=== PATIENT | female | born 1975 | race Caucasian/White ===

== ENCOUNTER 2017-07-15 16:46 | Emergency (ER) | payer SELFPAY ==
[2017-07-15 16:53] VITALS: BP 119/62; PULSE 78; TEMP 98.8; BMI 26.8
--- NOTE | 2017-07-15 17:46 | PDOC ---
History of Present Illness - General Chief Complaint: Abscess Boil Stated Complaint: PAIN, ACUTE Time Seen by Provider: 07/15/17 17:31 History Source: Patient Exam Limitations: No Limitations - History of Present Illness Initial Comments: 07/15/17 17:59 Chief complaint: Abscess draining right buttocks History of present illness: Patient is a 41-year-old female with significant medical history here today with tenderness and redness of right medial buttocks with drainage that started within the last day days. Patient reports having subjective fever yesterday. Patient is afebrile currently. Patient denies having any other areas like this previously or any exposure to someone else with any skin abscesses. Timing/Duration: getting worse Severity: moderate Associated Symptoms: reports: denies symptoms Past History - Past Medical History Allergies/Adverse Reactions: Allergies Allergy/AdvReac Type Severity Reaction Status Date / Time No Known Allergies Allergy Verified 07/15/17 16:49 Home Medications: Ambulatory Orders Ibuprofen 600 mg PO Q6H PRN #18 tablet 07/15/17 Sulfamethoxazole/Trimethoprim [Bactrim Ds -] 1 tab PO BID #13 tablet 07/15/17 Other medical history: DENIES. - Psycho/Social/Smoking Cessation Hx Suicidal Ideation: No Smoking History: Never smoked Review of Systems - Review of Systems Able to Perform ROS?: Yes Constitutional: No: Symptoms Reported HEENTM: No: Symptoms Reported Respiratory: No: Symptoms reported Cardiac (ROS): No: Symptoms Reported ABD/GI: No: Symptoms Reported : No: Symptoms Reported Integumentary: Yes: Erythema (rt. medial buttock with tiny open area with serosanquinous drainage tender to touch ), Other Neurological: No: Symptoms reported *Physical Exam - Vital Signs Last Vital Signs Temp Pulse Resp BP Pulse Ox 98.8 F 78 19 119/62 99 07/15/17 16:50 07/15/17 16:50 07/15/17 16:50 07/15/17 16:50 07/15/17 16:50 - Physical Exam General Appearance: Yes: Appropriately Dressed Respiratory/Chest: positive: Lungs Clear, Normal Breath Sounds. negative: Chest Tender, Respiratory Distress Cardiovascular: positive: Regular Rhythm, Regular Rate, S1, S2 Integumentary: positive: Erythema (rt. medial buttock erythema diameter 16 cm x 8 cm fluculant with tiny opening in center, tender ) Procedures - Consent Consent obtained: From Patient - Incision and Drainage I&D Site: Right: Buttock (medial buttock ) Betadine cleansed: Yes Anesthesia: 1% Lidocaine Volume(ml): 6 Blade Size: 11 Attempts: 1 Iodinated Packin/4 in Plain Packing: No Complications: none Dressing: Yes (2 x 2 with tegaderm ) Progress: 07/15/17 18:30 large amount of serosanguineous uuo-gdeo-wjpyjswd discharge obtained *DC/Admit/Observation/Transfer Diagnosis at time of Disposition: Abscess of buttock, right - Discharge Dispostion Disposition: HOME Condition at time of disposition: Stable - Patient Instructions Additional Instructions: Do not wet area where dressing is Return here in 2 days for packing removal or sooner if any fever or increased redness around area Patient voiced understanding of discharge instructions and all questions were answered - Post Discharge Activity Work/School Note: Back to Work
[2017-07-15] MEDS ORDERED: LIDOCAINE HCL 1%, 10 MG/ML (20ML VIAL) ONE (18:07)
[2017-07-15] MEDS ORDERED: SULFAMETHOXAZOLE/TRIMETHOPRIM 800MG/160MG D.S. TABLET PO ONE (18:30)
[2017-07-15] MEDS ORDERED: IBUPROFEN 600 MG TABLET (FP) PO ONE ×2 (18:31→18:34)
[2017-07-15] MEDS ORDERED: SULFAMETHOXAZOLE/TRIMETHOPRIM 800MG/160MG D.S. TABLET ONE (18:34)
== END 2017-07-15 18:41 | disposition home or self-care (01) ==
LOC: JERFT 16:46
PROC: 0J990ZZ Drainage of Buttock Subcutaneous Tissue and Fascia, Open Approach (ICD-10-PCS; principal; 2017-07-15)
DX: L02.31 Cutaneous abscess of buttock (principal)
CPT/HCPCS: 87070; 87186; 87205; 99282-25

== ENCOUNTER 2017-07-16 12:24 | Emergency (ER) | payer SELFPAY ==
[2017-07-16 12:31] VITALS: BP 105/62; PULSE 79; TEMP 98.4; BMI 26.8
[2017-07-16] MEDS ORDERED: SULFAMETHOXAZOLE/TRIMETHOPRIM 800MG/160MG D.S. TABLET PO ONE (13:25)
--- NOTE | 2017-07-16 13:37 | PDOC ---
Suture Removal/Wound Check HPI - History of Present Illness Chief Complaint: Revisit,Wound Recheck Stated Complaint: REVISIT, PAIN Time Seen by Provider: 07/16/17 12:57 History Source: Yes: Patient Exam Limitations: Yes: No Limitations [facility]ated [facility] Date of Last ED visit: 07/15/17 - Previous ED Treatment Type of procedure performed on last visit: Yes: I&D of Abscess Antibiotics Prescribed: Yes (bactrim) - Onset of Previous Treatment Date of Occurence: 07/15/17 Past History - Past Medical History Allergies/Adverse Reactions: Allergies No Known Allergies Allergy (Verified 07/16/17 12:30) Home Medications: Ambulatory Orders Ibuprofen 600 mg PO Q6H PRN #18 tablet 07/15/17 Sulfamethoxazole/Trimethoprim [Bactrim DS -] 1 tab PO BID #13 tablet 07/16/17 General: Yes: no pertinent history - Immunization History Immunizations Up to Date: Yes - Social History Smoking Status: Never smoked Suture Removal/Wound Check PE - Physical Exam Laceration/Wound Check Symptoms: reports: Pain Comments: 07/16/17 13:46 07/16/17 13:46 Open area to right medial buttocks with surrounding erythema with packing of iodoform in place erythema has decreased since yesterday there is a moderate amount of serosanguineous discharge on packing and dressing is tender to touch Maximum Severity Level: Moderate Comments: 07/16/17 13:45 rt. buttock medial open area with packing iodoform draining moderate amount of serosanquinous drainage. *Review of Systems - Review of Systems Able to Perform ROS?: Yes Constitutional: Yes: Symptoms Reported Integumentary: Yes: Other (rt. medial buttock I & D'd yesterday here today due to dressing falling off and soaked with discharge ) Neurological: No: Symptoms reported Medical Decision Making - Medical Decision Making 07/16/17 14:03 Patient was here yesterday for I & D of abscess to right medial buttocks patient returns today due to dressing falling off and being soaked with serosanguineous discharge. Patient is afebrile. Redness surrounding area has lessened area is continues to be tender to touch. Pt. did not start on BActrim DS does not have insurance. Will reorder for [facility] in the [place] is $ 4, pt. agrees with plan 07/16/17 14:04 wound cleansed and dressing changed PLAN: bactrim DS 1 tab now than bid for 7 days follow up with PCP in 2 days apply warm soaks to area every 2 hrs for 15 minutes for 2 days 07/16/17 14:05 *DC/Admit/Observation/Transfer Diagnosis at time of Disposition: Cheek wound Qualifiers: Encounter type: initial encounter Laterality: right Qualified Code(s): S01.401A - Unspecified open wound of right cheek and temporomandibular area, initial encounter - Discharge Dispostion Disposition: HOME Condition at time of disposition: Stable - Prescriptions Prescriptions: Sulfamethoxazole/Trimethoprim [Bactrim DS -] 1 tab PO BID #13 tablet - Referrals Referrals: STAFF,NOT ON [Primary Care Provider] - - Patient Instructions Additional Instructions: Apply warm soaks to wound area for 15 minutes every 2 hours for the next 2 days Follow-up with your primary care provider in 2 days for further evaluation Take ibuprofen as needed as directed by board certified arts therapist for pain Return to emergency room if any fever or increased redness around wound Patient voiced understanding of discharge instructions and all questions were answered Aplique remojos calientes al kelly de la herida diego 15 minutos cada 2 horas diego los prximos 2 vergara Seguimiento con venegas proveedor de atencin primaria en 2 vergara para emily evaluacin posterior Laurel ibuprofeno segn sea necesario segn las instrucciones del fabricante para el dolor Regreso a la dorene de emergencias si hay fiebre o aumento de enrojecimiento alrededor de la herida
[2017-07-16] MEDS ORDERED: SULFAMETHOXAZOLE/TRIMETHOPRIM 800MG/160MG D.S. TABLET ONE (13:45)
== END 2017-07-16 14:18 | disposition home or self-care (01) ==
LOC: JERFT 12:24
DX: Z04.1 Encounter for examination and observation following transport accident (principal); L02.31 Cutaneous abscess of buttock
CPT/HCPCS: 99281-25

== ENCOUNTER 2022-11-17 13:15 | Emergency (ER) | payer OTHER ==
[2022-11-17 13:37] VITALS: BMI 23.6
[2022-11-17] MEDS ORDERED: MECLIZINE HCL 25 MG TABLET (FP) PO ONE (14:43)
[2022-11-17] MEDS ORDERED: SODIUM CHLORIDE 0.9% 500 ML INFUS.BAG IV ONE (14:43)
[2022-11-17] MEDS ORDERED: MECLIZINE HCL 25 MG TABLET (FP) ONE (16:56)
[2022-11-17 17:50] VITALS: BP 112/63; PULSE 69; RESP 17; TEMP 98.2
[2022-11-17 17:51] LABS: BASO % 0.5 % (0-2.0); EOS % 0.9 % (0-4.5); HEMATOCRIT 39.4 % (32.4-45.2); LYMPH % 21.7 % (8-40); MCH 30.1 pg (25.7-33.7); MCHC 32.9 g/dl (32.0-36.0); MEAN CELL VOLUME 91.5 fl (80-96); MONO % 5.2 % (3.8-10.2); NEUT % 71.7 % (42.8-82.8); PLATELET COUNT 283 10^3/uL (134-434); RBC 4.31 M/mm3 (3.60-5.2); RDW 13.4 % (11.6-15.6); WHITE BLOOD COUNT 7.5 K/mm3 (4.0-10.0)
[2022-11-17 18:45] LABS: CALCIUM 9.2 mg/dL (8.5-10.1)
[2022-11-17 18:46] LABS: ALBUMIN 3.8 g/dl (3.4-5.0); BLOOD UREA NITROGEN 13.8 mg/dL (7-18)
[2022-11-17 18:49] LABS: CREATININE 0.7 mg/dL (0.55-1.3)
[2022-11-17 18:50] LABS: BILIRUBIN,TOTAL 0.4 mg/dL (0.2-1); TOT PROT 7.6 g/dl (6.4-8.2)
== END 2022-11-17 20:38 | disposition home or self-care (01) ==
LOC: JER 13:15
DX: R42 Dizziness and giddiness (principal)
CPT/HCPCS: 0241U-QW; 36415; 71046-TC-FY; 80053; 84484; 85025; 93005; 93010; 99285-25

== ENCOUNTER 2023-04-25 09:26 | Day surgery (SDC) | payer OTHER ==
[2023-04-24 09:35] VITALS: BMI 26.4
[2023-04-25 10:30] VITALS: RESP 20
[2023-04-25 11:21] VITALS: TEMP 97.1
[2023-04-25 11:44] VITALS: BP 96/52; PULSE 62
== END 2023-04-25 11:50 | disposition home or self-care (01) ==
LOC: FASU-ENDO 09:26
PROVIDERS: ATTEND Internal Medicine Gastroenterology
PROC: 0DJD8ZZ Inspection of Lower Intestinal Tract, Via Natural or Artificial Opening Endoscopic (ICD-10-PCS; principal; 2023-04-25 10:54)
DX: Z12.11 Encounter for screening for malignant neoplasm of colon (principal); K64.8 Other hemorrhoids
CPT/HCPCS: 81025

== ENCOUNTER 2023-08-01 09:39 | Day surgery (SDC) | payer OTHER ==
[2023-07-26 12:11] VITALS: BMI 26.4
[2023-08-01 12:09] VITALS: BP 119/67; PULSE 68; RESP 17; TEMP 97.2
== END 2023-08-01 12:09 | disposition home or self-care (01) ==
LOC: FASU-ENDO 09:39
PROVIDERS: ATTEND Internal Medicine Gastroenterology
PROC: 0DJD8ZZ Inspection of Lower Intestinal Tract, Via Natural or Artificial Opening Endoscopic (ICD-10-PCS; principal; 2023-08-01 10:47)
DX: Z12.11 Encounter for screening for malignant neoplasm of colon (principal); K64.1 Second degree hemorrhoids
CPT/HCPCS: 81025